=== PATIENT | male | born 1995 | race Two or more races ===

== ENCOUNTER 2019-10-23 16:29 | Emergency (ER) | payer OTHER ==
[~2019-10-23] VITALS: Ht 180.3 cm; Wt 72.6 kg
== END 2019-10-23 19:34 | disposition home or self-care (01) ==
LOC: ER 16:29
DX: S60.221A Contusion of right hand, initial encounter (principal); W22.8XXA Striking against or struck by other objects, initial encounter; Y93.89 Activity, other specified; Y92.89 Other specified places as the place of occurrence of the external cause; Y99.8 Other external cause status